=== PATIENT | male | born 1990 | race African-American/Black ===

== ENCOUNTER 2019-01-17 10:20 | Emergency (ER) | payer SELFPAY ==
[~2019-01-17] VITALS: Ht 167.6 cm; Wt 113.4 kg
[~2019-01-17 10:20] MED LIST: IBUP-1007 PO; VENTOLIN HFA18 GM INH
[2019-01-17 10:27] VITALS: BP 168/106
[2019-01-17] MEDS ORDERED: KETOROLAC 60 MG/2 ML VIAL. IM ONE (11:00)
--- NOTE | 2019-01-17 11:15 | RAD ---
LUMBAR SPINE 2-3V History: fall on ice today, back pain Comparison: None. Findings: 3 views of the lumbar spine are submitted. Lumbar vertebral body stature and AP alignment are maintained. Intervertebral disc spaces are adequate. There is facet degenerative change at L5-S1. No acute osseous abnormality is identified by radiographs. Impression: 1. No acute osseous abnormality is identified by radiographs. Electronically signed by: Santosh Carmen MD (01/17/2019 11:12 AM) [id number]
--- NOTE | 2019-01-17 11:16 | RAD ---
SHOULDER 2+V LEFT History: Fall on ice today, left shoulder pain Comparison: None. Findings: 3 views left shoulder are submitted. No acute fracture or dislocation is identified by radiographs. Impression: 1. No acute osseous abnormality is identified by radiographs. Electronically signed by: Santosh Carmen MD (01/17/2019 11:14 AM) [id number]
--- NOTE | 2019-01-17 17:54 | PHYS DOC ---
Past Medical History Past Medical History: No Pertinent History Past Surgical History: No Surgical History Alcohol Use: None Drug Use: Marijuana Adult General Chief Complaint Chief Complaint: MECHANICAL FALL HPI HPI 28-year-old otherwise healthy male presents after he slipped on the ice and fell on some stairs. He states he landed on his left side. He complains of left shoulder pain and low back pain. He states he was able to move his left arm but it was sore in the shoulder region. He did not hit his head or lose consciousness. He was ambulatory at the scene however the pain was severe enough that he called EMS. He denies any radicular symptoms. He denies any bowel or bladder dysfunction.[] Review of Systems Review of Systems Constitutional: Denies fever or chills [] Eyes: Denies change in visual acuity, redness, or eye pain [] HENT: Denies nasal congestion or sore throat [] Respiratory: Denies cough or shortness of breath [] Cardiovascular: No additional information not addressed in HPI [] GI: Denies abdominal pain, nausea, vomiting, bloody stools or diarrhea [] : Denies dysuria or hematuria [] Musculoskeletal: Per history of present illness[] Integument: Denies rash or skin lesions [] Neurologic: Denies headache, focal weakness or sensory changes [] Endocrine: Denies polyuria or polydipsia [] All other systems were reviewed and found to be within normal limits, except as documented in this note. Current Medications Current Medications Current Medications Medications (Trade) Dose Ordered Sig/[facility] Start Time Stop Time Status Last Admin Dose Admin Ketorolac Tromethamine (Toradol Im) 60 mg 1X ONCE 01/17/19 11:00 01/17/19 11:01 DC Allergies Allergies Allergies Coded Allergies Type Severity Reaction Last Updated Verified peanut oil Allergy Unknown 09/16/16 Yes Physical Exam Physical Exam Constitutional: Well developed, well nourished, no acute distress, non-toxic appearance. [] HENT: Normocephalic, atraumatic, bilateral external ears normal, oropharynx moist, no oral exudates, nose normal. [] Eyes: PERRLA, EOMI, conjunctiva normal, no discharge. [] Neck: Normal range of motion, no tenderness, supple, no stridor. [] Cardiovascular:Heart rate regular rhythm, no murmur [] Lungs & Thorax: Bilateral breath sounds clear to auscultation [] Abdomen: Bowel sounds normal, soft, no tenderness, no masses, no pulsatile masses. [] Skin: Warm, dry, no erythema, no rash. [] Back: Patient has some paraspinal lumbar muscle spasm no vertebral tenderness he is able to side bend and rotate without difficulty. [] Extremities: Left shoulder appears normal there is some decreased range of motion secondary to pain but no deformity no swelling no ecchymosis and no abrasion[] Neurologic: Alert and oriented X 3, normal motor function, normal sensory function, no focal deficits noted. [] Psychologic: Anxious. [] Current Patient Data Vital Signs Vital Signs Date Time Temp Pulse Resp B/P (MAP) Pulse Ox O2 Delivery O2 Flow Rate FiO2 01/17/19 10:27 98.1 76 18 168/106 (126) 99 Room Air 98.1 EKG EKG [] Radiology/Procedures Radiology/Procedures [] Impressions: PROCEDURE: SHOULDER 2+V LEFT SHOULDER 2+V LEFT History: Fall on ice today, left shoulder pain Comparison: None. Findings: 3 views left shoulder are submitted. No acute fracture or dislocation is identified by radiographs. Impression: 1. No acute osseous abnormality is identified by radiographs. PROCEDURE: LUMBAR SPINE 2-3V LUMBAR SPINE 2-3V History: fall on ice today, back pain Comparison: None. Findings: 3 views of the lumbar spine are submitted. Lumbar vertebral body stature and AP alignment are maintained. Intervertebral disc spaces are adequate. There is facet degenerative change at L5-S1. No acute osseous abnormality is identified by radiographs. Impression: 1. No acute osseous abnormality is identified by radiographs. Course & Med Decision Making Course & Med Decision Making Pertinent Labs and Imaging studies reviewed. (See chart for details) [] Dragon Disclaimer Dragon Disclaimer This electronic medical record was generated, in whole or in part, using a voice recognition dictation system. Departure Departure Impression: Primary Impression: Lumbar sprain Additional Impression: Sprain of shoulder, left Disposition: 01 HOME, SELF-CARE Condition: STABLE Patient Instructions: Shoulder Exercises, Generic, SportsMed, Back Pain, Adult , Shoulder Sprain, Sling Use After Injury or Surgery, [id number] Problem Qualifiers Primary Impression: Lumbar sprain Encounter type: initial encounter Qualified Codes: S33.5XXA - Sprain of ligaments of lumbar spine, initial encounter Additional Impression: Sprain of shoulder, left Encounter type: initial encounter Shoulder sprain type: unspecified sprain Qualified Codes: S43.402A - Unspecified sprain of left shoulder joint, initial encounter KEKE VALLECILLO DO Jan 17, 2019 17:54
== END 2019-01-17 12:05 | disposition home or self-care (01) ==
LOC: ER 10:20
DX: S33.5XXA Sprain of ligaments of lumbar spine, initial encounter (principal); S43.402A Unspecified sprain of left shoulder joint, initial encounter; F12.10 Cannabis abuse, uncomplicated; W01.0XXA Fall on same level from slipping, tripping and stumbling without subsequent striking against object, initial encounter; Y93.89 Activity, other specified; Y92.89 Other specified places as the place of occurrence of the external cause; Y99.8 Other external cause status
CPT/HCPCS: 72100; 73030; 99283

== ENCOUNTER 2021-05-27 11:45 | Emergency (ER) | payer OTHER, SELFPAY ==
[~2021-05-27] VITALS: Ht 167.6 cm; Wt 118.2 kg
[2021-05-27 12:25] VITALS: BP 157/89
[2021-05-27] MEDS ORDERED: CYCL10TA19 PO (12:39)
[2021-05-27] MEDS ORDERED: PRED50TA PO (12:39)
--- NOTE | 2021-05-27 12:40 | ED.ADGEN ---
Past Medical History Past Medical History: No Pertinent History Past Surgical History: No Surgical History Smoking Status: Current Every Day Smoker Alcohol Use: None Drug Use: Marijuana General Adult EDM: Chief Complaint: FLU SYMPTOM HPI: HPI: Patient is a 30-year-old male who arrives ambulatory to the emergency department complaining of fever with body aches. Patient reportedly began feeling this way yesterday evening and this is persisted into today. Patient reports his girlfriend was recently diagnosed with coronavirus and he has been in regular contact with her. Patient states despite having the body aches he has not had any chest pain or shortness of air. Additionally he denies any neck stiffness or headache. He is awake, alert and nontoxic-appearing. Review of Systems: Review of Systems: Constitutional: Reports chills and fatigue. [] Eyes: Denies change in visual acuity. [] HENT: Denies nasal congestion or sore throat. [] Respiratory: Denies cough or shortness of breath. [] Cardiovascular: Denies chest pain or edema. [] GI: Denies abdominal pain, nausea, vomiting, bloody stools or diarrhea. [] : Denies dysuria. [] Musculoskeletal: Reports body aches. [] Integument: Denies rash. [] Neurologic: Denies headache, focal weakness or sensory changes. [] Endocrine: Denies polyuria or polydipsia. [] Lymphatic: Denies swollen glands. [] Psychiatric: Denies depression or anxiety. [] Current Medications: Current Medications Medications (Trade) Dose Ordered Sig/[facility] Start Time Stop Time Status Last Admin Dose Admin Acetaminophen (Tylenol) 1,000 mg 1X ONCE 05/27/21 12:45 05/27/21 12:46 Allergies: Allergies: Allergies Coded Allergies Type Severity Reaction Last Updated Verified peanut oil Allergy Unknown 09/16/16 Yes Physical Exam: PE: Constitutional: Ill-appearing. no acute distress, non-toxic appearance. [] HENT: Normocephalic, atraumatic, bilateral external ears normal, oropharynx moist, no oral exudates, nose normal. [] Eyes: PERRLA, EOMI, conjunctiva normal, no discharge. [] Neck: Normal range of motion, no tenderness, supple, no stridor. [] Cardiovascular:Heart rate regular rhythm, no murmur [] Lungs & Thorax: Bilateral breath sounds clear to auscultation [] Abdomen: Bowel sounds normal, soft, no tenderness, no masses, no pulsatile masses. [] Skin: Warm, dry, no erythema, no rash. [] Back: No tenderness, no CVA tenderness. [] Extremities: No tenderness, no cyanosis, no clubbing, ROM intact, no edema. [] Neurologic: Alert and oriented X 3, normal motor function, normal sensory function, no focal deficits noted. [] Psychologic: Affect normal, judgement normal, mood normal. [] Current Patient Data: Vital Signs: Vital Signs Date Time Temp Pulse Resp B/P (MAP) Pulse Ox O2 Delivery O2 Flow Rate FiO2 05/27/21 12:25 100.5 83 33 157/89 (126) 98 Room Air 100.5 EKG: EKG: [] Heart Score: C/O Chest Pain: No Risk Factors: Risk Factors: DM, Current or recent (<one month) smoker, HTN, HLP, family history of CAD, obesity. Risk Scores: Score 0 - 3: 2.5% MACE over next 6 weeks - Discharge Home Score 4 - 6: 20.3% MACE over next 6 weeks - Admit for Clinical Observation Score 7 - 10: 72.7% MACE over next 6 weeks - Early Invasive Strategies Radiology/Procedures: Radiology/Procedures: [] Course & Med Decision Making: Course & Med Decision Making Pertinent Labs and Imaging studies reviewed. (See chart for details) [] Dragon Disclaimer: Dragon Disclaimer: This electronic medical record was generated, in whole or in part, using a voice recognition dictation system. Departure Departure Impression: Primary Impression: Person under investigation for COVID-19 Additional Impression: Viral syndrome Disposition: HOME / SELF CARE / HOMELESS Condition: STABLE Referrals: NO PCP (PCP) Patient Instructions: Viral Syndrome Additional Instructions: The patient is awake, alert and in no acute distress. The patient has been instructed to quarantine over the next several days. The patient does have c lose contact with somebody was positive and he is likely positive for Covid. I have encouraged the patient return with any new shortness of air or chest pain. The patient understands and has agreed to do so. He is stable for discharge Scripts Prednisone (PREDNISONE) 50 Mg Tablet 1 TAB PO DAILY, #5 TAB Prov: AYSE TRINIDAD DO 05/27/21 Cyclobenzaprine Hcl (CYCLOBENZAPRINE HCL) 10 Mg Tablet 1 TAB PO TID for 5 Days, #15 TAB Prov: AYSE TRINIDAD DO 05/27/21 Problem Qualifiers AYSE TRINIDAD DO May 27, 2021 12:40
[2021-05-27] MEDS ORDERED: ACETAMINOPHEN 500 MG TABLET PO ONE (12:45)
--- NOTE | 2021-05-28 14:46 | NUR ---
IP: Informed pt of positive covid test and the need to quarantine x 10 days. Pt verbalized understanding.
== END 2021-05-27 12:50 | disposition home or self-care (01) ==
LOC: ER 11:45
DX: U07.1 COVID-19 (principal); B34.9 Viral infection, unspecified; F17.200 Nicotine dependence, unspecified, uncomplicated
CPT/HCPCS: 99283; U0003; U0005